=== PATIENT | female | born 1965 | race Caucasian/White ===

== ENCOUNTER 2019-11-08 09:59 | Outpatient (CLI) | payer OTHER, SELFPAY ==
--- NOTE | ~2019-11-08 | MM_ITS ---
EXAMINATION: MM screening [facility] BI w manuel HISTORY: Screening mammogram TECHNIQUE: Craniocaudal and mediolateral oblique 3-D tomosynthesis images were obtained and synthetic 2-D images were generated. CAD analysis was submitted and interpreted. COMPARISON: 07/04/2018, 06/02/2017, 05/09/2016 BREAST PARENCHYMAL COMPOSITION: There are scattered areas of fibroglandular density. FINDINGS: There is no evidence of suspicious mass, calcification, or architectural distortion to sugg est malignancy in either breast. There has been no suspicious interval change. IMPRESSION: 1. No mammographic evidence of malignancy. 2. Recommend routine screening mammography in one year. BI-RADS Category 1: Negative Reviewed, dictated and finalized at location A.
== END 2019-11-08 10:00 | disposition home or self-care (01) ==
PROVIDERS: PCP Physician Assistant; Visit Provider Obstetrics & Gynecology
DX: Z12.31 Encounter for screening mammogram for malignant neoplasm of breast (principal)
CPT/HCPCS: 77063; 77067

== ENCOUNTER → 2020-06-27 01:21 | Outpatient (CLI) | payer OTHER, SELFPAY ==
[2020-06-27 20:39] LABS: SARS-CoV-2 RNA PCR Positive
== END ==
PROVIDERS: PCP Internal Medicine; Visit Provider Internal Medicine Gastroenterology
DX: Z01.812 Encounter for preprocedural laboratory examination (principal); U07.1 COVID-19
CPT/HCPCS: C9803; U0003; U0005

== ENCOUNTER 2020-07-28 01:11 | Day surgery (SDC) | payer OTHER, SELFPAY ==
[2020-06-23 09:36] VITALS: BMI 24.9
--- NOTE | 2020-06-29 08:35 | SUR.PREOP ---
0830 called patient in regards to her Covid test result coming back positive. She denies any signs or symptoms of Covid. Instructions were given to follow up with her Primary Care provider is she developed symptoms or if her conditioned worsened. Dr. Hernandez was notified and patient was rescheduled. Patient voiced understanding.
--- NOTE | 2020-07-15 09:17 | PC.NURSE ---
Patient states she is okay with Dr Monk doing the procedure. Will call office to notify. Patient states no changes in health history since last interview. Updated on dates and times and instructions.
[2020-07-28 06:23] VITALS: BMI 24.8
[2020-07-28] MEDS: AMPICILLIN 2 GM/NS 100 ML 2 GM/100 ML BAG IVPB (06:33)
[2020-07-28] MEDS: LACTATED RINGERS 1,000 ML 150 ML IV CONT (06:34)
--- NOTE | 2020-07-28 07:09 | WPDANESEPPF ---
Anes - Initial Pre Proc Eval Procedure: Operation Date: 07/28/20 07:30 Proposed Procedures p Colonoscopy - Zana Monk MD Date/Time: 07/28/20 07:09 Surgeon: Zana Monk MD Pre Op Diagnosis: Positive Cologuard Patient Data Age: 55 Gender: F Height: 5 ft 5 in Weight: 67.8 kg Allergies Allergy/AdvReac Type Severity Reaction Status Date / Time codeine AdvReac Mild VOMITING Verified 07/28/20 06:22 oxycodone AdvReac Mild VOMITING Verified 07/28/20 06:22 Home Medications Medication Instructions Recorded Confirmed Type celecoxib 200 mg capsule 200 mg PO BID #360 cap 06/03/20 06/23/20 Rx estradiol 0.5 mg tablet 1.5 mg PO DAILY tablet 06/03/20 06/23/20 History sodium,potassium,mag sulfates See Rx Instructions .ROUTE 06/22/20 Rx [Suprep Bowel Prep Kit] .COMPLEX #1 ml Patient hx anesthesia problems: post op nausea/vomiting Family hx anesthesia problems: none PMFSH Surgical History Surgical History History of knee replacement 01/2020 Family History Family History Mother Cancer Father Heart disease Social History Social History Smoking status: Never smoker Alcohol intake: never Substance use type: does not use Living arrangements: with family Spiritual care concerns: No Anes - Eval Final PreProcedure Day of Procedure 07/28/20 07:09 Patient weight: normal Heart: regular rate and rhythm Lungs: clear to auscultation Airway: Mallampati scale class II Neurological: alert and oriented Last oral intake: >/= 8 hours ASA classification: I Emergent: no Anesthetic plan: proceed Anesthesia type and monitoring: general GIVS and standard monitoring Informed Consent: The patient's anesthetic plan and its attendant risks and benefits were discussed with the patient/family/POA. Questions were solicited and answers provided to the satisfaction of the patient/family/POA.
--- NOTE | 2020-07-28 07:23 | PM.HPGS ---
History of Present Illness History of Present Illness Consent: Risks, benefits, and alternatives have been discussed and questions answered. Patient agrees to proceed with procedure. Chief complaint: Positive Cologuard Narrative: Nina Paige is a 55 year old female referred for screening colonoscopy. She performed a colo guard test which was positive Review of Systems Review of Systems: All systems reviewed & are unremarkable except as noted in HPI and below PMFSH Surgical History Surgical History History of knee replacement 01/2020 Family History Family History Mother Cancer Father Heart disease Social History Social History Smoking status: Never smoker Alcohol intake: never Substance use type: does not use Living arrangements: with family Spiritual care concerns: No Meds Home Medications and Allergies Home Medications Medication Instructions Recorded Confirmed Type celecoxib 200 mg capsule 200 mg PO BID #360 cap 06/03/20 06/23/20 Rx estradiol 0.5 mg tablet 1.5 mg PO DAILY tablet 06/03/20 06/23/20 History sodium,potassium,mag sulfates See Rx Instructions .ROUTE 06/22/20 Rx [Suprep Bowel Prep Kit] .COMPLEX #1 ml Allergies Allergy/AdvReac Type Severity Reaction Status Date / Time codeine AdvReac Mild VOMITING Verified 07/28/20 06:22 oxycodone AdvReac Mild VOMITING Verified 07/28/20 06:22 Exam Resp: Auscultation: clear to auscultation bilaterally Cardio: Rate: regular rate Rhythm: regular rhythm GI: GI Palp: Yes Soft to palpation and No Tenderness to palpation present (GI) Assessment and Plan Assessment and plan (1) Screening for colon cancer: Code(s): Z12.11 - Encounter for screening for malignant neoplasm of colon Status: Acute Assessment and Plan: Colonoscopy with possible biopsy or polypectomy or cautery or injection of substances.
[2020-07-28] MEDS: SIMETHICONE ORAL SUSPENSION 20 MG/0.3 ML 30 ML BOTTLE 0.6 ML IRRIGATION (07:36)
[2020-07-28 07:49] VITALS: BP 112/63; PULSE 85; RESP 20; O2SAT 100
[2020-07-28 07:59] VITALS: BP 115/52; PULSE 77; RESP 20; O2SAT 100
[2020-07-28 08:09] VITALS: BP 115/67; PULSE 64; RESP 20; O2SAT 100
== END 2020-07-28 08:24 | disposition home or self-care (01) ==
PROVIDERS: PCP Internal Medicine; Visit Provider Internal Medicine Gastroenterology
PROC: 0DJD8ZZ Inspection of Lower Intestinal Tract, Via Natural or Artificial Opening Endoscopic (ICD-10-PCS; CPT 45378; principal; 2020-07-28 07:30)
DX: Z12.11 Encounter for screening for malignant neoplasm of colon (principal); D12.8 Benign neoplasm of rectum; K64.8 Other hemorrhoids
CPT/HCPCS: 45385; 88305; J0290; J2704; J7120

== ENCOUNTER 2020-12-23 10:25 | Outpatient (CLI) | payer OTHER, SELFPAY ==
--- NOTE | ~2020-12-23 | MM_ITS ---
EXAMINATION: MM screening [facility] BI w manuel HISTORY: Screening TECHNIQUE: Craniocaudal and mediolateral oblique 3-D tomosynthesis images were obtained and synthetic 2-D images were generated. CAD analysis was submitted and interpreted. COMPARISON: Comparison to multiple prior studies sequentially, with oldest reviewed study dated 04/21. BREAST PARENCHYMAL COMPOSITION: There are scattered areas of fibroglandular density. FINDINGS: There is no evidence of suspicious mass, calcification, or architectural distortion to sugg est malignancy in either breast. There has been no suspicious interval change. IMPRESSION: 1. No mammographic evidence of malignancy. 2. Recommend routine screening mammography in one year. BI-RADS Category 1: Negative Reviewed, dictated and finalized at location A.
== END 2020-12-23 10:26 | disposition home or self-care (01) ==
LOC: ANHIMG 10:27
PROVIDERS: PCP Internal Medicine; Visit Provider Obstetrics & Gynecology
DX: Z12.31 Encounter for screening mammogram for malignant neoplasm of breast (principal)
CPT/HCPCS: 77063; 77067

== ENCOUNTER 2022-01-26 09:46 | Outpatient (CLI) | payer OTHER, SELFPAY ==
--- NOTE | ~2022-01-26 | MM_ITS ---
EXAMINATION: MM screening [facility] BI w manuel HISTORY: Screening mammogram TECHNIQUE: Craniocaudal and mediolateral oblique 3-D tomosynthesis images were obtained and synthetic 2-D images were generated. CAD analysis was submitted and interpreted. COMPARISON: No prior mammogram is available for comparison at this institution. BREAST PARENCHYMAL COMPOSITION: There are scattered areas of fibroglandular density. FINDINGS: There is no evidence of suspicious mass, calcification, or architectural distortion to sugg est malignancy in either breast. There has been no suspicious interval change. IMPRESSION: 1. No mammographic evidence of malignancy. 2. Recommend routine screening mammography in one year. BI-RADS Category 1: Negative Reviewed, dictated and finalized at location A.
== END 2022-01-26 09:47 | disposition home or self-care (01) ==
PROVIDERS: PCP Internal Medicine; Visit Provider Internal Medicine
DX: Z12.31 Encounter for screening mammogram for malignant neoplasm of breast (principal)
CPT/HCPCS: 77063; 77067

== ENCOUNTER 2023-04-28 07:31 | Outpatient (CLI) | payer OTHER, SELFPAY ==
--- NOTE | ~2023-04-28 | MM_ITS ---
EXAMINATION: MM screening [facility] BI w manuel HISTORY: Screening mammogram TECHNIQUE: Craniocaudal and mediolateral oblique 3-D tomosynthesis images were obtained and synthetic 2-D images were generated. CAD analysis was submitted and interpreted. COMPARISON: 01/26/2022, 12/23/2020, 11/08/2019 BREAST PARENCHYMAL COMPOSITION: There are scattered areas of fibroglandular density. FINDINGS: No suspicious mass, calcification, or architectural distortion are identified in either jonathan ast to suggest malignancy. There has been no suspicious interval change. IMPRESSION: 1. No mammographic evidence of malignancy. 2. Recommend routine screening mammography in one year. BI-RADS Category 1: Negative Reviewed, dictated and finalized at location A. [facility] [employer]
== END 2023-04-28 07:32 | disposition home or self-care (01) ==
LOC: ANHIMG 07:38
PROVIDERS: PCP Internal Medicine; Visit Provider Obstetrics & Gynecology
DX: Z12.31 Encounter for screening mammogram for malignant neoplasm of breast (principal)
CPT/HCPCS: 77063; 77067

== ENCOUNTER 2023-07-24 00:44 | Day surgery (SDC) | payer OTHER, SELFPAY ==
[2023-06-29 14:18] VITALS: BMI 25.8
--- NOTE | 2023-07-21 12:24 | SUR.PREOP ---
Patient called regarding upcoming procedure. Reviewed preop instructions, appointment times, and procedure prep.
--- NOTE | 2023-07-21 14:40 | P.HP_ITS ---
History of Present Illness History of Present Illness Consent: Risks, benefits, and alternatives have been discussed and questions answered. Patient agrees to proceed with procedure. Chief complaint: hx colon polyps Narrative: Nina Paige is a 58 year old female With history of colon polyps. She had is 2 adenomatous polyps removed little over 3 years ago. Review of Systems Review of Systems: All systems reviewed & are unremarkable except as noted in HPI and below PMFSH Past Medical History Medical History Arthritis History of nephrolithotomy with removal of calculi (~02/19/13) Kidney stones (~2013) Screening mammogram, encounter for Surgical History Surgical History History of incision and drainage (11/12/15) Bartholin gland abscess History of knee replacement 01/25/20 rt knee History of knee surgery left knee History of total vaginal hysterectomy (~08/20/00) severe dysplasia/carcinoma in situ (cervical) Family History Family History Mother Cancer Hypertension Cerebrovascular accident Malignant neoplasm of uterus Father Heart disease Other Acute myocardial infarction paternal uncle Social History Social History Smoking status: Former smoker Tobacco type: cigarettes Second hand tobacco smoke exposure: No Alcohol intake: never Substance use: never Substance use type: does not use Lack of Transportation: No Lack of Food: Never True Current Housing: I Have Housing Concerned About Future Housing: No Difficulty Paying Gas/Electric Bills: No Difficulty Paying for Meds: No Currently Unemployed: No Education: High School Diploma/GED Difficulty w/ Childcare or Family Care: No Living arrangements: alone Additional living arrangements comments: Occupation/Education: occupation 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 Gender identity (if verbalized by the patient): Female Sexual Orientation (if Verbalized by the Patient): Straight or Heterosexual Spiritual care concerns: No Meds Home Medications and Allergies Home Medications Medication Instructions Recorded Confirmed Type ibuprofen 600 mg tablet 600 mg PO QID PRN Pain 06/29/23 07/24/23 History Allergies Allergy/AdvReac Type Severity Reaction Status Date / Time codeine AdvReac Mild VOMITING Verified 07/24/23 08:59 oxycodone AdvReac Mild VOMITING Verified 07/24/23 08:59 Exam Const: General: alert Orientation/consciousness: patient oriented x3 Resp: Auscultation: clear to auscultation bilaterally Cardio: Rhythm: regular rhythm GI: GI Palp: Yes Soft to palpation and No Tenderness to palpation present (GI) Neuro: General: patient oriented x3 Assessment and Plan Assessment and plan (1) Screening for colon cancer: Code(s): Z12.11 - Encounter for screening for malignant neoplasm of colon Status: Acute Assessment and Plan: Colonoscopy with possible biopsy or polypectomy or cautery or injection of substances.
[2023-07-24 09:00] VITALS: BP 116/62; PULSE 94; RESP 16; TEMP 36.2; O2SAT 98
[2023-07-24] MEDS: LACTATED RINGERS 1,000 ML 150 ML IV CONT (09:08)
--- NOTE | 2023-07-24 09:58 | WPDANESEPPF ---
Anes - Initial Pre Proc Eval Procedure: Operation Date: 07/24/23 10:00 Proposed Procedures p Colonoscopy - Zana Monk MD Date/Time: 07/24/23 09:58 Surgeon: Zana Monk MD Pre Op Diagnosis: hx colon polyps Patient Data Age: 58 Gender: F Height: 1.65 m Weight: 69.3 kg Last Vital Signs Temp 97.2 F L 07/24/23 09:00 Pulse 94 07/24/23 09:00 Resp 16 07/24/23 09:00 BP 116/62 07/24/23 09:00 Pulse Ox 98 07/24/23 09:00 O2 Del Method Room Air 07/24/23 09:00 Allergies Allergy/AdvReac Type Severity Reaction Status Date / Time codeine AdvReac Mild VOMITING Verified 07/24/23 08:59 oxycodone AdvReac Mild VOMITING Verified 07/24/23 08:59 Home Medications Medication Instructions Recorded Confirmed Type ibuprofen 600 mg tablet 600 mg PO QID PRN Pain 06/29/23 07/24/23 History Patient hx anesthesia problems: none Family hx anesthesia problems: none Results Review: All pre-operative results and documents have been reviewed as part of the pre-operative evaluation. [facility] Past Medical History Medical History Arthritis History of nephrolithotomy with removal of calculi (~02/19/13) Kidney stones (~2013) Screening mammogram, encounter for Surgical History Surgical History History of incision and drainage (11/12/15) Bartholin gland abscess History of knee replacement 01/25/20 rt knee History of knee surgery left knee History of total vaginal hysterectomy (~08/20/00) severe dysplasia/carcinoma in situ (cervical) Family History Family History Mother Cancer Hypertension Cerebrovascular accident Malignant neoplasm of uterus Father Heart disease Other Acute myocardial infarction paternal uncle Social History Social History Smoking status: Former smoker Tobacco type: cigarettes Second hand tobacco smoke exposure: No Alcohol intake: never Substance use: never Substance use type: does not use Lack of Transportation: No Lack of Food: Never True Current Housing: I Have Housing Concerned About Future Housing: No Difficulty Paying Gas/Electric Bills: No Difficulty Paying for Meds: No Currently Unemployed: No Education: High School Diploma/GED Difficulty w/ Childcare or Family Care: No Living arrangements: alone Additional living arrangements comments: Occupation/Education: occupation 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 Gender identity (if verbalized by the patient): Female Sexual Orientation (if Verbalized by the Patient): Straight or Heterosexual Spiritual care concerns: No Anes - Eval Final PreProcedure Day of Procedure 07/24/23 09:58 Patient weight: normal Heart: regular rate and rhythm Lungs: clear to auscultation Airway: Mallampati scale class II Neurological: alert and oriented Last oral intake: >/= 8 hours ASA classification: II Emergent: no Anesthetic plan: proceed Anesthesia type and monitoring: general GIVS and standard monitoring Results Review: All pre-operative results and documents have been reviewed as part of the pre-operative evaluation. Informed Consent: The patient's anesthetic plan and its attendant risks and benefits were discussed with the patient/family/POA. Questions were solicited and answers provided to the satisfaction of the patient/family/POA.
[2023-07-24 10:21] VITALS: BP 119/67; PULSE 92; RESP 20; O2SAT 100
[2023-07-24 10:31] VITALS: BP 131/63; PULSE 80; RESP 20; O2SAT 99
[2023-07-24 10:41] VITALS: BP 119/75; PULSE 70; RESP 20; O2SAT 100
== END 2023-07-24 10:52 | disposition home or self-care (01) ==
PROVIDERS: PCP Internal Medicine; Visit Provider Internal Medicine Gastroenterology
PROC: 0DJD8ZZ Inspection of Lower Intestinal Tract, Via Natural or Artificial Opening Endoscopic (ICD-10-PCS; CPT 45378; principal; 2023-07-24 10:00)
DX: Z12.11 Encounter for screening for malignant neoplasm of colon (principal); K63.5 Polyp of colon; K64.8 Other hemorrhoids; Z79.1 Long term (current) use of non-steroidal anti-inflammatories (NSAID); Z98.890 Other specified postprocedural states; Z87.891 Personal history of nicotine dependence; Z86.010 Personal history of colon polyps; Z82.49 Family history of ischemic heart disease and other diseases of the circulatory system; Z80.49 Family history of malignant neoplasm of other genital organs
CPT/HCPCS: 45380; 88305; J2405; J2704; J7120

== ENCOUNTER 2023-12-11 09:31 | Outpatient (CLI) | payer OTHER, SELFPAY ==
--- NOTE | ~2023-12-11 | MR_ITS ---
EXAMINATION: MR shoulder RT wo con DATE: 12/11/2023 10:29 INDICATION: Rotator cuff syndrome . TECHNIQUE: Magnetic resonance imaging (MRI) of the right shoulder was performed without intravenous c ontrast. Sequences included axial PD-weighted FS FSE, coronal oblique PD-weighted FS FSE and T2-weigh maria elena FS FSE, and sagittal oblique T2-weighted FS FSE and T1-weighted FSE. COMPARISON: 09/12/2023. FINDINGS: Coracoacromial arch: No significant anterolateral downsloping of the type II acromion. Minimal acromial tip enthesopathy. Mild inferior osteophytosis at the AC joint. No subacromial or subcoracoid narrowing. Rotator cuff: 5 mm full-thickness tear in the anterior fibers of the supraspinatus at their insertion. Focal high s ignal intrasubstance signal abnormality at the musculotendinous junction of the infraspinatus, with m ild intermediate signal in the tendon substance. The teres minor is intact. Biceps tendon and glenoid labrum: Long head of biceps tendon is intact. Mild degenerative change of the glenoid labrum. No focal tear. Fluid: Minimal subacromial subdeltoid fluid. Bones/cartilage: No suspicious focal or diffuse marrow signal. Mild thinning of the glenohumeral cartilage. Mild hyper trophy of the AC joint. IMPRESSION: 5 mm full-thickness tear in the anterior fibers of the supraspinatus. Small focal intrasubstance type tear of the infraspinatus at the musculotendinous junction, in a back ground of mild tendinopathy. Mild polyarticular osteoarthritic changes. Reviewed, dictated and finalized at location K. IMPRESSION: 5 mm full-thickness tear in the anterior fibers of the supraspinatus. Small focal intrasubstance type tear of the infraspinatus at the musculotendino us junction, in a background of mild tendinopathy. Mild polyarticular osteoarthritic changes.
== END 2023-12-11 09:32 ==
LOC: GOSHIMG 09:32
PROVIDERS: PCP Internal Medicine
DX: M75.121 Complete rotator cuff tear or rupture of right shoulder, not specified as traumatic (principal); M19.011 Primary osteoarthritis, right shoulder
CPT/HCPCS: 73221

== ENCOUNTER 2024-06-04 08:33 | Outpatient (CLI) | payer OTHER, SELFPAY ==
--- NOTE | ~2024-06-04 | MM_ITS ---
EXAMINATION: MM screening [facility] BI w manuel HISTORY: Screening mammogram TECHNIQUE: Craniocaudal and mediolateral oblique 3-D tomosynthesis images were obtained and synthetic 2-D images were generated. CAD analysis was submitted and interpreted. COMPARISON: 04/28/2023, 01/26/2022, 12/23/2020 BREAST PARENCHYMAL COMPOSITION:Not Dense. There are scattered areas of fibroglandular density. FINDINGS: No suspicious mass, calcification, or architectural distortion are identified in either jonathan ast to suggest malignancy. There has been no suspicious interval change. IMPRESSION: No mammographic evidence of malignancy. Recommend routine screening mammography in one year. BI-RADS Category 1: Negative Reviewed, dictated and finalized at location . CONDITIONER
== END 2024-06-04 08:34 | disposition home or self-care (01) ==
LOC: ANHIMG 08:33
PROVIDERS: PCP Internal Medicine; Visit Provider Obstetrics & Gynecology
DX: Z12.31 Encounter for screening mammogram for malignant neoplasm of breast (principal)
CPT/HCPCS: 77063; 77067